=== PATIENT | female | born 1995 | race Caucasian/White ===

== ENCOUNTER 2025-08-16 10:24 | Inpatient (IN) | payer OTHER ==
[2025-08-16 10:58] VITALS: BMI 19.1
[2025-08-16] MEDS ORDERED: guaiFENesin 600 MG TABLET.ER (FP) PO PRN (11:19)
[2025-08-16] MEDS ORDERED: IBUPROFEN 600 MG TABLET (FP) PO PRN (11:19)
[2025-08-16] MEDS ORDERED: ACETAMINOPHEN 325 MG TABLET (FP) PO PRN (11:19)
[2025-08-16] MEDS ORDERED: NICOTINE POLACRILEX 2 MG LOZENGE BC PRN (11:19)
[2025-08-16] MEDS ORDERED: hydrOXYzine PAMOATE 25 MG CAPSULE (FP) PO PRN (11:19)
[2025-08-16] MEDS ORDERED: LOPERAMIDE HCL 2 MG CAPSULE PO PRN (11:19)
[2025-08-16] MEDS ORDERED: DICYCLOMINE HCL 10 MG CAPSULE PO PRN (11:19)
[2025-08-16] MEDS ORDERED: BISMUTH SUBSALICYLATE 524 MG/30 ML PO PRN (11:19)
[2025-08-16] MEDS ORDERED: ONDANSETRON *ODT* 4 MG TABLET SL PRN (11:19)
[2025-08-16] MEDS ORDERED: IBUPROFEN 400 MG TABLET (FP) PO PRN (11:19)
[2025-08-16] MEDS ORDERED: MAGNESIUM HYDROX 2400MG/30ML ORAL SUSPENSION 30 ML CUP PO PRN (11:19)
[2025-08-16] MEDS ORDERED: NICOTINE POLACRILEX 2 MG GUM BUC PRN (11:19)
[2025-08-16] MEDS ORDERED: METHOCARBAMOL 500 MG TABLET PO PRN (11:19)
[2025-08-16] MEDS ORDERED: POLYETHYLENE GLYCOL (HEALTHYLAX) 3350 17 GM PACKET PO PRN (11:19)
[2025-08-16] MEDS ORDERED: MAG HYDROX/AL HYDROX/SIMETH 30 ML UNIT-DOSE CUP PO PRN (11:19)
[2025-08-16] MEDS ORDERED: NALOXONE (NARCAN) HCL 4 MG/0.1 ML SPRAY NS PRN (11:19)
[2025-08-16] MEDS ORDERED: BENZOCAINE/MENTHOL (CHLORASEPTIC ) LOZENGE MM PRN (11:19)
[2025-08-16] MEDS ORDERED: BENZONATATE 200 MG CAPSULE PO PRN (11:19)
[2025-08-16] MEDS: THIAMINE 100 MG TABLET PO SCH (22:09)
[2025-08-16] MEDS: MELATONIN 5 MG TABLETS PO SCH (22:10)
[2025-08-17 06:28] VITALS: PULSE 100
[2025-08-17 09:41] VITALS: BP 144/96; RESP 16; TEMP 97.4
[2025-08-17] MEDS: FLUCONAZOLE 100 MG TABLET (UD) PO SCH (10:48)
[2025-08-17] MEDS: PRENATAL VITAMINS W/ FOLIC ACID TABLET (FP) PO SCH (10:48)
[2025-08-17 11:11] LABS: MCHC 32.1 g/dl (32.2-35.5); MEAN CELL VOLUME 83.4 fl (79.4-94.8); MEAN PLT VOLUME 10.0 fl (9.4-12.3); RDW 15.3 % (12.1-16.5)
[2025-08-17 11:20] LABS: GLUCOSE,RANDOM 91 mg/dL (74-106); TOT PROT 7.9 g/dl (6.4-8.2)
[2025-08-17 11:22] LABS: CO2 25 mmol/L (21-32)
[2025-08-17 11:23] LABS: ALK PHOS 102 U/L (40-150)
[2025-08-17 11:26] LABS: CREATININE 0.53 mg/dL (0.55-1.3); SGOT/AST 30 U/L (5-34); SGPT/ALT 22 U/L (0-55)
== END 2025-08-17 11:40 | disposition home or self-care (01) | DRG 773 ==
LOC: EDBD → YASAS 10:24 → Y3N 11:46
PROVIDERS: ADMIT Neuromusculoskeletal Medicine & OMM; ATTEND Psychiatry & Neurology Pain Medicine
PROC: HZ2ZZZZ Detoxification Services for Substance Abuse Treatment (ICD-10-PCS; principal; 2025-08-16)
DX: F11.23 Opioid dependence with withdrawal (principal); F14.20 Cocaine dependence, uncomplicated; G47.00 Insomnia, unspecified; F17.210 Nicotine dependence, cigarettes, uncomplicated
CPT/HCPCS: 36415; 80053; 80305; 80307; 81025; 85027; 86780; 93005; 93010